=== PATIENT | male | born 1985 | race Caucasian/White ===

== ENCOUNTER 2016-11-09 04:08 | Emergency (ER) | payer SELFPAY ==
--- NOTE | 2016-11-09 19:14 | ER ---
ADMIT: 11/09/2016 RM/LOC: ER [facility] MR#: [id number] [address] [id number] KAYLENE PHIPPS [address] [place] [address] Emergency Room Report SEX: M AGE: 31 : 1985 DATE: 11/09/2016 The patient is a 31-year-old male with no past medical history, came with chief complaint of 4 days of left perianal pain. The patient states he did not have any bleeding from the area and denies any similar symptoms in the past and denies any nausea, vomiting, or fever. PHYSICAL EXAMINATION: The patient is in moderate distress, was afebrile, lying in bed on the side. Head, neck, chest and abdomen was noncontributory. On right perianal area at 3 o'clock there is a 2-3 cm far, lateral from the anus, there is a small 1-2 cm induration or fluctuation without any openings. Ultrasound was put in the area and there was a small pocket of fluid/pus. After draping and cleaning the area with Betadine, the area was anesthetized with 1% lidocaine 3 mL and small 3 mm laceration, there was a superficial incision and drainage of the perianal abscess. Pockets were opened up and the wound packing was placed in place. The patient was discharged to home with medication for pain control, Keflex, advised on using sitz bath 3-4 times a day, followup with the primary doctor in the ER in 48 hours for recheck. The patient acknowledged he understood the plan and agreed with it. Nate Keith MD/ robert JOB #: [id number] CC: Nate Keith MD, Attending Physician Dalton Floyd MD, Family Physician
== END 2016-11-09 05:40 | disposition home or self-care (01) ==
LOC: ER 04:08
PROC: 0D9QXZZ Drainage of Anus, External Approach (ICD-10-PCS; principal; 2016-11-09)
DX: K61.0 Anal abscess (principal); F17.210 Nicotine dependence, cigarettes, uncomplicated